=== PATIENT | female | born 1945 | race African-American/Black ===

== ENCOUNTER 2018-03-08 23:55 | Inpatient (IN) | payer OTHER ==
[~2018-03-08] VITALS: Ht 162.6 cm; Wt 176.4 kg
--- NOTE | ~2018-03-08 | EKG ---
[address] [address] ELECTROCARDIOGRAM REPORT Name: ARIELA MIX Room #: 207-P ADM IN M.R.#: [id number] Admission: 03/09/18 Attend Phys: Power Shafer MD Discharge: Date of : 49 Report #: [id number] THIS REPORT FOR: //name// [facility] ED Test Date: 2018-03-09 Test Time: 01:32:07 Pat Name: ARIELA MIX Department: Room: 207 Gender: F Blow Up Operator: DARRYL : 1945 Requested By: Damián Zavala Order Number: [id number] MD: Rmaez Mobley Measurements Intervals [place] Rate: 61 P: IA: QRS: 69 QRSD: 122 T: 17 QT: 435 QTc: 439 Interpretive Statements Sinus rhythm. Nonspecific intraventricular conduction delay Probable anteroseptal infarct, old No previous ECG available for comparison Electronically Signed On 03-13-2018 14:34:12 CDT by Ramez Mobley [email or web address] <ELECTRONICALLY SIGNED> By: Ramez Mobley MD 03/13/18 1434 0132 013 Ramez Mobley MD /ANKIT
--- NOTE | ~2018-03-08 | 2DMMODE ---
[facility] [place] [address] 2 D/M-MODE ECHOCARDIOGRAM Name: SEBLE MIXTE Room #: 421-P [facility] IN ..#: [id number] Admission: 03/09/18 Attend Phys: Power Shafer MD Discharge: Date of : 49 Date of Service: 03/11/18 1313 Report #: [id number] THIS REPORT FOR: //name// APPROVED REPORT Study performed: 03/11/2018 12:00:22 EXAM: Comprehensive 2D, Doppler, and color-flow Echocardiogram Patient Location: Bedside Room #: 421 Status: routine BSA: 2.76 HR: 77 bpm BP: 154/69 mmHg Rhythm: NSR Other Information Study Quality: Technically DifficultTechnically Limited Indications Congestive Heart Failure COPD Diabetes Dyspnea Hypertension/HDD Echo Enhancing Agent Indication: Endocardial border delineation Agent(s) / Amount(s) Used: Optison 4 cc 2D Dimensions IVSd: 14.55 (7-11mm) LVOT Diam: 20.90 (18-24mm) LVDd: 52.81 mm PWd: 14.99 (7-11mm) Ascending Ao: 34.86 (22-36mm) LVDs: 36.63 (25-40mm) Aortic Root: 27.78 mm Aortic Valve AoV Peak Brandon.: 1.33 m/s AO Peak Gr.: 7.04 mmHg Pulmonary Valve PV Peak Brandon.: 1.00 m/s PV Peak Gr.: 4.05 mmHg [facility] [address] [place] [address] 2 D/M-MODE ECHOCARDIOGRAM Name: ARIELA MIX Room #: 421-P ADM IN M.R.#: [id number] Admission: 03/09/18 Attend Phys: Power Shafer MD Discharge: Date of : 49 Date of Service: 03/11/18 1313 Report #: [id number] Left Ventricle The left ventricle is normal size. Mild concentric left ventricular hypertrophy. The overall left ventricular systolic function appears grossly normal. LVEF is 55-60%. This study is not technically sufficient to allow evaluation of the LV diastolic function. Right Ventricle Right ventricle is not well visualized. Atria The left atrium size is normal. Right atrium is not well visualized. Aortic Valve The aortic valve is not well visualized. No aortic regurgitation is present. There is no aortic valvular stenosis. Mitral Valve The mitral valve is normal in structure. There is no mitral valve regurgitation noted. No evidence of mitral valve stenosis. Tricuspid Valve Tricuspid valve is not well visualized. Pulmonic Valve Pulmonic valve is not well visualized. Great Vessels IVC is not visualized. Pericardium There is no pericardial effusion. <Conclusion> Technically difficult study. The left ventricle is normal size. Mild concentric left ventricular hypertrophy. The overall left ventricular systolic function appears grossly normal. Right ventricle is not well visualized. The left atrium size is normal. Right atrium is not well visualized. [facility] [address] [place] [address] 2 D/M-MODE ECHOCARDIOGRAM Name: ARIELA MIX Room #: 421-P [facility] IN .R.#: [id number] Admission: 03/09/18 Attend Phys: Power Shafer MD Discharge: Date of : 49 Date of Service: 03/11/181312 Report #: [id number] The aortic valve is not well visualized. There is no mitral valve regurgitation noted. <ELECTRONICALLY SIGNED> By: Alan Garcia MD 03/11/183 12 12 Alan Garcia MD /INF
--- NOTE | ~2018-03-08 | HC ---
[facility] [place] [address] CONSULTATION Name: ARIELA MIX Room #: 421-P ADM IN M.R.#: [id number] Admission: 03/09/18 Attend Phys: Power Shafer MD Discharge: Date of : 49 Report #: [id number] THIS REPORT FOR: //name// CC: FAM unknown Power Shafer REFERRAL PHYSICIAN: Dr. Shafer. REASON FOR REFERRAL: Acute respiratory failure. HISTORY OF PRESENT ILLNESS: The patient is a 72-year-old white female who was brought to Emergency Room with progressive dyspnea. A pulmonary consultation was requested. The patient is morbidly obese. She has not walked since 2013. She weighs over 204 kg, BMI not sure if that is accurate. She has multiple medical problems including asthma, COPD, sleep apnea, pulmonary hypertension. She states that she was at about 2 weeks ago. She was treated for pneumonia and was discharged home. She lives at home with her daughter and granddaughter. They have been primary caregiver. Otherwise, aside from the dyspnea, she denies any recent febrile illness, chest pain, productive cough, nausea, vomiting, diarrhea. PAST MEDICAL HISTORY: As mentioned above including morbid obesity, asthma/COPD, MICHELLE, pulmonary hypertension, history of heart failure, atrial fibrillation. PAST SURGICAL HISTORY: Partial hysterectomy, tonsillectomy, cholecystectomy. ALLERGIES: MORPHINE, SULFA, reactions not specified. HOME MEDICATIONS: List reviewed as in AUG. FAMILY HISTORY: Noncontributory. SOCIAL HISTORY: She has smoked for about 25 years, quit few years ago. She denies any alcohol use. She lives at home with daughters. REVIEW OF SYSTEMS: As mentioned above, otherwise notable for weakness, has not walked since 2013. Otherwise, 10-point system review negative. PHYSICAL EXAMINATION: GENERAL: She is awake, alert, and appears moderately dyspneic. VITAL SIGNS: Temperature is 98 degrees Fahrenheit, pulse is 60, respiratory rate is 18, blood pressure 120/40 mmHg and saturation 96%. HEENT: Unremarkable. [facility] [address] [place] [address] CONSULTATION Name: ARIELA MIX Room #: [address] [place] [address] [place] ..#: [id number] Admission: 03/09/18 Attend Phys: Power Shafer MD Discharge: Date of : 49 Report #: [id number] NECK: Supple. CHEST: Vesicular breath sounds are distant. Few expiratory wheezes. CARDIOVASCULAR: Heart sounds are distant. No obvious murmurs or gallop. BREASTS: Deferred. ABDOMEN: Large pannus, nontender. GENITOURINARY: Deferred. RECTAL: Deferred. EXTREMITIES: 1 to 2+ bilateral edema. No cyanosis or clubbing. LABORATORY DATA: Portable chest x-ray is of poor quality, appears to have left-sided pleural effusion with cardiomegaly. Electrolytes are normal. Creatinine 0.8. Liver enzymes are grossly unremarkable. WBC 9000, hemoglobin 11.3, platelets normal. INR is 1.9. Arterial blood gas is incomplete. IMPRESSION: 1. Acute hypoxic respiratory failure, probably secondary to heart failure, possible pneumonia, underlying chronic obstructive pulmonary disease/asthma. 2. Chronic obstructive pulmonary disease/asthma exacerbation. Asthma may be related to morbid obesity. 3. Ighcx-jk-wrfkohn systolic heart failure, pleural effusion is noted, though is difficult to discern given poor technique. 4. Abdominal pain. 5. Chronic hypoxic respiratory failure. She is on home O2. 6. Atrial fibrillation, on chronic anticoagulation. 7. Past history of deep venous thrombosis. 8. Obstructive sleep apnea, on home CPAP. 9. Morbid obesity, difficult problem, contributing to most of the problems. 10. Progressive debility and weakness, the patient has not walked since 2014. RECOMMENDATIONS: Agree with current medical treatment plans including bronchodilators, corticosteroids, broad spectrum antibiotics, diuresis. We will followup chest x-ray if possible, consider thoracentesis if needed. <ELECTRONICALLY SIGNED> By: Kelvin Ponce MD 03/10/18 1751 1637 2127 Kelvin Ponce MD /nt
--- NOTE | ~2018-03-08 | HC ---
[facility] [place] [address] CONSULTATION Name: ARIELA MIX Room #: 207-P ADM IN M.R.#: [id number] Admission: 03/09/18 Attend Phys: Power Shafer MD Discharge: Date of : 49 Report #: [id number] THIS REPORT FOR: //name// CC: FAM unknown Power Shafer DATE OF SERVICE: 03/12/2018 ENDOCRINE CONSULTATION Patient of Dr. Shafer's. LOCATION: [facility], room 207. SUBJECTIVE: Morbidly obese 72-year-old white female with exacerbation of COPD and pneumonia, now on high dose corticosteroids. The patient is a very poor historian, but states that she was diagnosed with diabetes in approximately 1992. She was begun on oral therapy and quickly converted to insulin. She has been on a variety of high dose insulin regimens, most recently t.i.d. high dose lispro 50 or so units per day plus either NPH detemir or glargine insulin 50-60 units b.i.d. On this regimen without any specific diet and with almost no physical activity, the patient's blood sugars have ranged from 50-500 when tested. The patient has strong family history of diabetes occurring in both father and mother and possibly other relatives. She has a long history of chronic obesity as well as COPD. She eats 3 meals per day, but snacks continuously. As mentioned, she has no physical activity and has to be assisted with all forms of daily activity. She monitors her sugar on occasion with both hyperglycemic and hypoglycemic episodes. She states that her hemoglobin A1c was 14%. Admission hemoglobin A1c is apparently 8.6%. Otherwise, there is no prior past or family history that is pertinent to report at this time except that corticosteroids were recently decreased to Solu-Medrol b.i.d. rather than q.i.d. The patient apparently has a history of hypothyroidism. States that she had been taking 100 mcg of generic L-thyroxine per day. Her degree of control is unknown at this time. OBJECTIVE: LABORATORY DATA: Hemoglobin A1c 8.6 as mentioned. Fingerstick glucoses have been as high as the high 400s-500 range prior to institution of an insulin drip plus high dose q.i.d., insulin with t.i.d. lispro and b.i.d. glargine at very high doses. Thyroid function has not been evaluated. PHYSICAL EXAMINATION: GENERAL: Morbidly obese 72-year-old white female, in no acute distress. Height 5 feet 4 inches, weight 375-400 pounds. The obesity is distributed both centrally and peripherally. The remainder [place] [address] CONSULTATION Name: ARIELA MIX Room #: 207-P [facility] IN M.R.#: [id number] Admission: 03/09/18 Attend Phys: Power Shaefr MD Discharge: Date of : 49 Report #: [id number] prior notes. There is some pitting pedal edema bilaterally. Thyroid is minimally palpable without nodularity or adenopathy and the gland moves well with deglutition. IMPRESSION: 1. Diabetes mellitus, out of control. The patient has morbid obesity, now complicated and aggravated by infection, chronic obstructive pulmonary disease, stress and high dose corticosteroids as well as probable intravascular dehydration. 2. Morbid obesity with severe insulin resistance and hyperinsulinemia. 3. Hypothyroidism, status unknown. PLAN: I have discussed all of the above with the patient and will take over dietary restriction as well as oral therapy if indicated. We will also utilize subcutaneous and possibly IV insulin as needed in an effort to stabilize glucose control while being cautious to avoid hypoglycemia, particularly as corticosteroid dosage is decreased. It is not clear whether the patient will be able to continue this sort of management regimen after hospital dismissal. Thank you very much for this consultation. I will continue to follow the patient with you for management of diabetes mellitus. <ELECTRONICALLY SIGNED> By: Benjy Galvan MD 03/13/18 1701 1713 Benjy Galvan MD /nt
[2018-03-08 23:57] VITALS: BP 156/56
[2018-03-09 01:33] LABS: URINE BILIRUBIN NEGATIVE (Negative); URINE BLOOD 1+ (Negative); URINE CLARITY CLEAR; URINE COLOR YELLOW; URINE GLUCOSE-RANDOM* NEGATIVE (Negative); URINE KETONES NEGATIVE (Negative); URINE LEUKOCYTES-REFLEX NEGATIVE (Negative); URINE NITRITE-REFLEX NEGATIVE (Negative); URINE PROTEIN (DIPSTICK) NEGATIVE (Negative); URINE UROBILINOGEN 0.2 E.U./dl (0.2-1.0)
[2018-03-09 01:49] LABS: BACTERIA-REFLEX None Seen /HPF (None Seen); CASTS None Seen /LPF (None Seen); MUCUS None Seen strn/LPF (None Seen); SQUAMOUS 0-3 Few /LPF (0-3); URINE RBC 0-2 Rare /HPF (0-2); URINE WBC-REFLEX None Seen /HPF (0-5)
[2018-03-09 01:50] LABS: CRYSTALS None Seen /LPF (None Seen)
[2018-03-09 02:17] LABS: ANION GAP 4 mmol/L (7-16); BUN 15 mg/dL (7-18); CALCIUM 9.2 mg/dL (8.5-10.1); CHLORIDE 105 mmol/L (98-107); CO2 33 mmol/L (21-32); CREATININE 0.8 mg/dL (0.6-1.0); GLUCOSE 139 mg/dL (74-106); POTASSIUM 4.8 mmol/L (3.5-5.1); SODIUM 142 mmol/L (136-145)
[2018-03-09 02:25] LABS: ABSOLUTE NEUTROPHILS 5.3 thou/uL (1.4-8.2); ALBUMIN 3.1 g/dL (3.4-5.0); BASOPHILS 1.1 % (0.0-2.0); EOSINOPHILS 2.9 % (0.0-3.0); HEMATOCRIT 34.4 % (37.0-47.0); HEMOGLOBIN 11.3 gm/dL (12.0-15.0); MAGNESIUM 1.4 mg/dL (1.8-2.4); MCH 28.5 pg (26.0-34.0); MCHC 32.8 g/dL (28.0-37.0); MCV 86.9 fL (80.0-100.0); MONOCYTES 9.3 % (1.0-8.0); PLATELET COUNT 225 thou/uL (150-400); POLYS 58.7 % (36.0-66.0); RBC 3.96 mil/uL (4.20-5.00); RDW 15.1 % (10.5-14.5); SGOT 15 U/L (15-37); SGPT 18 U/L (30-65); TOTAL BILIRUBIN 0.3 mg/dL (<0.1-1.0); TOTAL PROTEIN 7.7 g/dL (6.4-8.2); TROPONIN-I <0.06 ng/mL (<0.06)
[2018-03-09 03:17] LABS: BE(vivo) 5.5 mmol/L (-2 to +3); HCO3 31.5 mmol/L (22.0-26.0); PCO2 52.8 mmHg (35.0-45.0); pH 7.393 (7.360-7.450)
[2018-03-09 03:52] LABS: APTT 36.3 Seconds (24.5-32.8); INR 1.9; PROTIME 19.6 Seconds (9.3-11.4)
[2018-03-09 05:07] VITALS: BP 128/39
[2018-03-09 05:46] VITALS: BP 120/37
[2018-03-09 06:16] VITALS: BP 122/38
[2018-03-09 19:45] VITALS: BP 153/48
[2018-03-10 03:52] VITALS: BP 145/63
[2018-03-10 06:38] LABS: INR 1.6; PROTIME 16.2 Seconds (9.3-11.4)
[2018-03-10 06:59] LABS: ALBUMIN 3.4 g/dL (3.4-5.0); CALCIUM 9.2 mg/dL (8.5-10.1); MAGNESIUM 1.4 mg/dL (1.8-2.4); POTASSIUM 5.6 mmol/L (3.5-5.1); TOTAL BILIRUBIN 0.3 mg/dL (<0.1-1.0)
[2018-03-10 07:30] VITALS: BP 152/74
[2018-03-10] MEDS ORDERED: NYAMYC15 GM TOP (14:41)
[2018-03-10] MEDS ORDERED: PROTONIX40 M4 PO (14:42)
[2018-03-10] MEDS ORDERED: SINGULAIR 10 MG10 M1 PO (14:43)
[2018-03-10] MEDS ORDERED: GLUCOPHAGE XR500 MG PO (14:44)
[2018-03-10] MEDS ORDERED: DIFLUCAN200 MG PO (14:46)
[2018-03-10] MEDS ORDERED: LEVOTHYROXINE100 MC1 PO (14:47)
[2018-03-10] MEDS ORDERED: CARVEDILOL12.5 MG PO (14:47)
[2018-03-10 16:00] VITALS: BP 160/80
[2018-03-10 19:35] VITALS: BP 187/69
[2018-03-10 23:30] VITALS: BP 156/78
[2018-03-11 03:40] VITALS: BP 150/47
[2018-03-11 06:22] LABS: HEMOGLOBIN 11.3 gm/dL (12.0-15.0); MCH 28.4 pg (26.0-34.0); MCHC 32.3 g/dL (28.0-37.0); MCV 87.8 fL (80.0-100.0); RBC 3.99 mil/uL (4.20-5.00); RDW 15.3 % (10.5-14.5); WBC 11.5 thou/uL (4.0-11.0)
[2018-03-11 06:46] LABS: CALCIUM 9.1 mg/dL (8.5-10.1); CREATININE 1.3 mg/dL (0.6-1.0)
[2018-03-11 06:48] LABS: POTASSIUM 4.6 mmol/L (3.5-5.1)
[2018-03-11 07:30] VITALS: BP 154/69
[2018-03-11 09:10] LABS: GLYCOHEMOGLOBIN (HGB A1C) 8.6 % (4.8-5.6)
[2018-03-11] MEDS ORDERED: ATORVASTATIN CA40 MG PO (09:44)
[2018-03-11] MEDS ORDERED: TRAMADOL 50 MG50 MG PO (09:46)
[2018-03-11] MEDS ORDERED: NORVASC5 MG PO (09:47)
[2018-03-11] MEDS ORDERED: LISINOPRIL2.5 MG PO (09:48)
[2018-03-11] MEDS ORDERED: COUMADIN 5 MG TA5 M1 PO (09:50)
[2018-03-11] MEDS ORDERED: COUMADIN 1MG TAB1 M1 PO (09:51)
[2018-03-11] MEDS ORDERED: IRON325 PO (09:54)
[2018-03-11 15:40] VITALS: BP 170/47
[2018-03-11 19:26] VITALS: BP 176/78
[2018-03-11 23:30] VITALS: BP 130/79
[2018-03-12 02:56] LABS: INR 1.8; PROTIME 18.3 Seconds (9.3-11.4)
[2018-03-12 04:00] VITALS: BP 133/67
[2018-03-12 08:29] VITALS: BP 159/90
[2018-03-12 12:00] VITALS: BP 100/68
[2018-03-12 19:28] VITALS: BP 181/72
[2018-03-13 00:27] VITALS: BP 170/64
[2018-03-13 04:56] VITALS: BP 179/73
[2018-03-13 07:46] LABS: HEMATOCRIT 35.6 % (37.0-47.0); HEMOGLOBIN 11.2 gm/dL (12.0-15.0); MCH 27.6 pg (26.0-34.0); MCHC 31.5 g/dL (28.0-37.0); MCV 87.8 fL (80.0-100.0); RBC 4.06 mil/uL (4.20-5.00); RDW 15.3 % (10.5-14.5); WBC 14.8 thou/uL (4.0-11.0)
[2018-03-13 07:53] LABS: CALCIUM 8.2 mg/dL (8.5-10.1); CREATININE 1.3 mg/dL (0.6-1.0); MAGNESIUM 1.9 mg/dL (1.8-2.4); POTASSIUM 4.3 mmol/L (3.5-5.1)
[2018-03-13 08:03] VITALS: BP 169/70
[2018-03-13 10:38] LABS: INR 1.9; PROTIME 19.4 Seconds (9.3-11.4)
[2018-03-13 12:26] VITALS: BP 151/59
[2018-03-13 16:12] VITALS: BP 183/80
[2018-03-13 20:08] VITALS: BP 177/58
[2018-03-14 04:17] VITALS: BP 159/61
[2018-03-14 07:38] VITALS: BP 152/73
[2018-03-14 11:06] VITALS: BP 123/53
[2018-03-14 11:41] LABS: HEMATOCRIT 34.9 % (37.0-47.0); HEMOGLOBIN 11.2 gm/dL (12.0-15.0); MCH 28.1 pg (26.0-34.0); MCHC 32.1 g/dL (28.0-37.0); MCV 87.5 fL (80.0-100.0); RBC 3.99 mil/uL (4.20-5.00); RDW 15.1 % (10.5-14.5); WBC 17.2 thou/uL (4.0-11.0)
[2018-03-14 11:50] LABS: CALCIUM 7.7 mg/dL (8.5-10.1); CREATININE 1.2 mg/dL (0.6-1.0); INR 1.9; MAGNESIUM 1.8 mg/dL (1.8-2.4); POTASSIUM 3.4 mmol/L (3.5-5.1); PROTIME 19.4 Seconds (9.3-11.4)
[2018-03-14 16:35] VITALS: BP 159/61
[2018-03-14 19:28] VITALS: BP 158/69
[2018-03-15 03:55] VITALS: BP 145/57
[2018-03-15 07:54] VITALS: BP 147/57
[2018-03-15 08:25] LABS: HEMATOCRIT 35.6 % (37.0-47.0); HEMOGLOBIN 11.6 gm/dL (12.0-15.0); MCH 28.2 pg (26.0-34.0); MCHC 32.4 g/dL (28.0-37.0); RBC 4.09 mil/uL (4.20-5.00); RDW 15.2 % (10.5-14.5); WBC 18.9 thou/uL (4.0-11.0)
[2018-03-15 08:32] LABS: CALCIUM 7.9 mg/dL (8.5-10.1); POTASSIUM 3.3 mmol/L (3.5-5.1)
[2018-03-15 08:35] LABS: INR 1.7; PROTIME 17.4 Seconds (9.3-11.4)
[2018-03-15 11:35] VITALS: BP 152/58
[2018-03-15 11:36] LABS: URINE BILIRUBIN NEGATIVE (Negative); URINE BLOOD 2+ (Negative); URINE CLARITY CLEAR; URINE COLOR YELLOW; URINE GLUCOSE-RANDOM* NEGATIVE (Negative); URINE KETONES NEGATIVE (Negative); URINE LEUKOCYTES 1+ (Negative); URINE NITRITE NEGATIVE (Negative); URINE PROTEIN (DIPSTICK) NEGATIVE (Negative); URINE UROBILINOGEN 0.2 E.U./dl (0.2-1.0)
[2018-03-15 12:01] LABS: BACTERIA None Seen /HPF (None Seen); CASTS None Seen /LPF (None Seen); CRYSTALS None Seen /LPF (None Seen); MUCUS 4-6 Moderate strn/LPF (None Seen); SQUAMOUS 4-10 Moderate /LPF (0-3); URINE RBC 3-10 Few /HPF (0-2); URINE WBC 6-15 Few /HPF (0-5); YEAST Present (None Seen)
[2018-03-15 19:53] VITALS: BP 154/81
[2018-03-16 05:05] VITALS: BP 150/66
[2018-03-16 07:34] LABS: HEMATOCRIT 35.4 % (37.0-47.0); HEMOGLOBIN 11.2 gm/dL (12.0-15.0); MCHC 31.6 g/dL (28.0-37.0); MCV 88.6 fL (80.0-100.0); RBC 3.99 mil/uL (4.20-5.00); RDW 15.4 % (10.5-14.5); WBC 22.5 thou/uL (4.0-11.0)
[2018-03-16 07:45] LABS: INR 1.7; PROTIME 17.4 Seconds (9.3-11.4)
[2018-03-16 07:48] VITALS: BP 165/56
[2018-03-16 07:49] LABS: CALCIUM 7.4 mg/dL (8.5-10.1); MAGNESIUM 1.9 mg/dL (1.8-2.4); POTASSIUM 3.5 mmol/L (3.5-5.1)
[2018-03-16 10:59] LABS: ALBUMIN 2.8 g/dL (3.4-5.0); DIRECT BILIRUBIN < 0.1 mg/dL (<0.1-0.3); SGOT 18 U/L (15-37); SGPT 29 U/L (30-65); TOTAL BILIRUBIN 0.3 mg/dL (<0.1-1.0)
[2018-03-16 15:40] VITALS: BP 161/65
[2018-03-16 19:55] VITALS: BP 145/52
[2018-03-17 04:20] LABS: CREATININE 0.8 mg/dL (0.6-1.0); MAGNESIUM 1.9 mg/dL (1.8-2.4); POTASSIUM 3.7 mmol/L (3.5-5.1)
[2018-03-17 04:50] VITALS: BP 158/60
[2018-03-17 08:16] VITALS: BP 152/51
[2018-03-17 10:20] LABS: HEMATOCRIT 35.6 % (37.0-47.0); HEMOGLOBIN 11.4 gm/dL (12.0-15.0); MCHC 31.9 g/dL (28.0-37.0); MCV 87.9 fL (80.0-100.0); RBC 4.06 mil/uL (4.20-5.00); RDW 15.4 % (10.5-14.5); WBC 19.4 thou/uL (4.0-11.0)
[2018-03-17 10:29] LABS: INR 1.5; PROTIME 15.5 Seconds (9.3-11.4)
[2018-03-17 11:30] LABS: URINE BILIRUBIN NEGATIVE (Negative); URINE BLOOD 2+ (Negative); URINE CLARITY CLEAR; URINE COLOR YELLOW; URINE GLUCOSE-RANDOM* NEGATIVE (Negative); URINE KETONES NEGATIVE (Negative); URINE NITRITE-REFLEX NEGATIVE (Negative); URINE PROTEIN (DIPSTICK) NEGATIVE (Negative); URINE SPECIFIC GRAVITY 1.015 (1.005-1.035); URINE UROBILINOGEN 0.2 E.U./dl (0.2-1.0)
[2018-03-17 11:32] LABS: URINE LEUKOCYTES-REFLEX 2+ (Negative)
[2018-03-17 11:36] LABS: SQUAMOUS 4-10 Moderate /LPF (0-3)
[2018-03-17 11:37] LABS: YEAST-REFLEX Present (None Seen)
[2018-03-17 11:38] LABS: URINE WBC-REFLEX 6-15 Few /HPF (0-5)
[2018-03-17 11:39] LABS: BACTERIA-REFLEX 1-9 Few /HPF (None Seen); CASTS None Seen /LPF (None Seen); CRYSTALS None Seen /LPF (None Seen); RENAL EPITHELIAL CELLS 0-3 Few /LPF (None Seen); TRANSITIONAL EPITHEL CELL 0-3 Few /LPF (None Seen); URINE RBC 3-10 Few /HPF (0-2)
[2018-03-17 12:13] VITALS: BP 122/85
[2018-03-17 17:01] VITALS: BP 150/61
[2018-03-17 19:59] VITALS: BP 168/45
[2018-03-18 04:59] VITALS: BP 134/77; BP 140/59
[2018-03-18 06:39] LABS: HEMATOCRIT 33.2 % (37.0-47.0); HEMOGLOBIN 10.9 gm/dL (12.0-15.0); MCH 28.7 pg (26.0-34.0); MCHC 32.8 g/dL (28.0-37.0); MCV 87.6 fL (80.0-100.0); RBC 3.79 mil/uL (4.20-5.00); WBC 19.7 thou/uL (4.0-11.0)
[2018-03-18 06:48] LABS: INR 1.5; PROTIME 14.9 Seconds (9.3-11.4)
[2018-03-18 06:49] LABS: CALCIUM 7.4 mg/dL (8.5-10.1); MAGNESIUM 1.9 mg/dL (1.8-2.4); POTASSIUM 3.5 mmol/L (3.5-5.1)
[2018-03-18 07:38] VITALS: BP 121/92
[2018-03-18 11:04] VITALS: BP 128/48
[2018-03-18 15:42] VITALS: BP 141/58
[2018-03-18 20:40] VITALS: BP 160/64
[2018-03-19 03:56] VITALS: BP 158/52
[2018-03-19 07:10] LABS: HEMATOCRIT 32.5 % (37.0-47.0); HEMOGLOBIN 10.3 gm/dL (12.0-15.0); MCH 27.6 pg (26.0-34.0); MCHC 31.6 g/dL (28.0-37.0); MCV 87.4 fL (80.0-100.0); RBC 3.72 mil/uL (4.20-5.00); WBC 15.7 thou/uL (4.0-11.0)
[2018-03-19 07:22] LABS: CALCIUM 7.8 mg/dL (8.5-10.1); CREATININE 0.8 mg/dL (0.6-1.0); POTASSIUM 3.7 mmol/L (3.5-5.1)
[2018-03-19 07:23] LABS: INR 1.5; PROTIME 15.4 Seconds (9.3-11.4)
[2018-03-19 08:10] VITALS: BP 193/92
[2018-03-19 11:50] VITALS: BP 150/81
[2018-03-19] MEDS ORDERED: MIRALAX17 GM PO (12:06)
[2018-03-19] MEDS ORDERED: PROBIOTIC1 EAC1 PO (12:06)
[2018-03-19] MEDS ORDERED: COUMADIN 5 MG TA5 M1 PO (12:06)
[2018-03-19] MEDS ORDERED: MUCINEX600 MG PO (12:06)
[2018-03-19] MEDS ORDERED: SENNA PLUS TAB1 EACH PO (12:06)
[2018-03-19] MEDS ORDERED: FLONASE 0.05%50 MCG NASAL (12:06)
[2018-03-19] MEDS ORDERED: PREDNISONE 20 M20 MG PO (12:06)
[2018-03-19] MEDS ORDERED: LEVAQUIN 750 M750 MG PO (12:06)
[2018-03-19] MEDS ORDERED: AZITHROMYCIN 2250 MG PO (12:06)
[2018-03-19] MEDS ORDERED: NEBULIZER MISCELL (12:06)
[2018-03-19] MEDS ORDERED: PULMICORT0.5 MG/21 INH (12:06)
[2018-03-19] MEDS ORDERED: LASIX 40 MG TAB40 M2 PO (12:06)
[2018-03-19] MEDS ORDERED: VITAMIN B-12500 MCG PO (12:06)
[2018-03-19] MEDS ORDERED: CLARITIN10 MG PO (12:06)
[2018-03-19] MEDS ORDERED: IPRATROPIU0.2 MG/1 M INH (12:06)
[2018-03-19] MEDS ORDERED: LEVEMIR SUBQ ×2 (12:53→17:56)
[2018-03-19] MEDS ORDERED: NOVOLOG100 UNIT/1 SUBQ ×2 (12:53→17:56)
[2018-03-19 13:42] VITALS: BP 150/81
[2018-03-19 14:24] VITALS: BP 150/81
[2018-03-19 16:10] VITALS: BP 171/70
== END 2018-03-19 20:00 | disposition home health service (06) | DRG 871 ==
LOC: ER 23:55 → 4E 03-09 04:24 → EROBS 03-09 04:24 → 4E 03-09 05:47 → ICU 03-11 23:10 → 2N 03-12 15:14
PROVIDERS: Emergency Medicine; Hospitalist; Internal Medicine; Nurse Practitioner
PROC: 5A09357 Assistance with Respiratory Ventilation, Less than 24 Consecutive Hours, Continuous Positive Airway Pressure (ICD-10-PCS; principal; 2018-03-11)
PROC: 5A09357 Assistance with Respiratory Ventilation, Less than 24 Consecutive Hours, Continuous Positive Airway Pressure (ICD-10-PCS; 2018-03-14)
PROC: 5A09357 Assistance with Respiratory Ventilation, Less than 24 Consecutive Hours, Continuous Positive Airway Pressure (ICD-10-PCS; 2018-03-15)
DX: A41.9 Sepsis, unspecified organism (principal); I50.23 Acute on chronic systolic (congestive) heart failure; J96.21 Acute and chronic respiratory failure with hypoxia; J18.9 Pneumonia, unspecified organism; Z68.44 Body mass index [BMI] 60.0-69.9, adult; J45.901 Unspecified asthma with (acute) exacerbation; J44.0 Chronic obstructive pulmonary disease with (acute) lower respiratory infection; N39.0 Urinary tract infection, site not specified; I11.0 Hypertensive heart disease with heart failure; J45.909 Unspecified asthma, uncomplicated; I27.20 Pulmonary hypertension, unspecified; I48.91 Unspecified atrial fibrillation; E83.42 Hypomagnesemia; E66.01 Morbid (severe) obesity due to excess calories; G47.33 Obstructive sleep apnea (adult) (pediatric); E03.9 Hypothyroidism, unspecified; K59.09 Other constipation; M62.84 Sarcopenia; E87.5 Hyperkalemia; T38.0X5A Adverse effect of glucocorticoids and synthetic analogues, initial encounter; E11.65 Type 2 diabetes mellitus with hyperglycemia; D72.829 Elevated white blood cell count, unspecified; Z88.6 Allergy status to analgesic agent; Z88.2 Allergy status to sulfonamides; Z90.711 Acquired absence of uterus with remaining cervical stump; Z90.49 Acquired absence of other specified parts of digestive tract; Z79.01 Long term (current) use of anticoagulants; Z87.891 Personal history of nicotine dependence; Z99.81 Dependence on supplemental oxygen; Z86.718 Personal history of other venous thrombosis and embolism
CPT/HCPCS: 10081; 10183; 10203

== ENCOUNTER 2019-04-13 17:11 | Inpatient (IN) | payer OTHER ==
[~2019-04-13] VITALS: Ht 162.6 cm; Wt 184.2 kg
[~2019-04-13 17:11] MED LIST: ATORVASTATIN CA40 MG PO; AZITHROMYCIN 2250 MG PO; CARVEDILOL12.5 MG PO; CLARITIN10 MG PO; COUMADIN 1MG TAB1 M1 PO; COUMADIN 5 MG TA5 M1 PO; DIFLUCAN200 MG PO; FLONASE 0.05%50 MCG NASAL; GLUCOPHAGE XR500 MG PO; IPRATROPIU0.2 MG/1 M INH; IRON325 PO; LASIX 40 MG TAB40 M2 PO; LEVAQUIN 750 M750 MG PO; LEVEMIR SUBQ; LEVOTHYROXINE100 MC1 PO; LISINOPRIL2.5 MG PO; MIRALAX17 GM PO; MUCINEX600 MG PO; NEBULIZER MISCELL; NORVASC5 MG PO; NOVOLOG100 UNIT/1 SUBQ; NYAMYC15 GM TOP; PREDNISONE 20 M20 MG PO; PROBIOTIC1 EAC1 PO; PROTONIX40 M4 PO; PULMICORT0.5 MG/21 INH; SENNA PLUS TAB1 EACH PO; SINGULAIR 10 MG10 M1 PO; TRAMADOL 50 MG50 MG PO; VITAMIN B-12500 MCG PO
[2019-04-13 17:12] VITALS: BP 155/52
[2019-04-13] MEDS ORDERED: COUMADIN 5 MG TA5 M1 PO (17:44)
[2019-04-13 18:02] LABS: HEMATOCRIT 34.7 % (37.0-47.0); HEMOGLOBIN 10.8 gm/dL (12.0-15.0); MCHC 31.2 g/dL (28.0-37.0); MCV 89.5 fL (80.0-100.0); RBC 3.88 mil/uL (4.20-5.00); RDW 14.9 % (10.5-14.5); WBC 10.8 thou/uL (4.0-11.0)
[2019-04-13 18:10] LABS: CALCIUM 8.7 mg/dL (8.5-10.1); CREATININE 1.1 mg/dL (0.6-1.0); POTASSIUM 3.6 mmol/L (3.5-5.1)
[2019-04-13 18:17] LABS: ALBUMIN 2.8 g/dL (3.4-5.0); TOTAL BILIRUBIN 0.2 mg/dL (<0.1-1.0); TOTAL PROTEIN 7.6 g/dL (6.4-8.2)
[2019-04-13 18:41] LABS: INR 1.4
[2019-04-13 20:12] LABS: URINE BILIRUBIN NEGATIVE (Negative); URINE BLOOD 1+ (Negative); URINE CLARITY SL CLOUDY; URINE COLOR YELLOW; URINE GLUCOSE-RANDOM* NEGATIVE (Negative); URINE KETONES NEGATIVE (Negative); URINE LEUKOCYTES-REFLEX 2+ (Negative); URINE NITRITE-REFLEX NEGATIVE (Negative); URINE PROTEIN (DIPSTICK) NEGATIVE (Negative); URINE UROBILINOGEN 0.2 E.U./dl (0.2-1.0)
[2019-04-13 20:27] LABS: BACTERIA-REFLEX >30 Many /HPF (None Seen); URINE RBC 3-10 Few /HPF (0-2); URINE WBC-REFLEX >25 Many /HPF (0-5)
[2019-04-13 20:29] VITALS: BP 149/47
[2019-04-13 20:29] LABS: CASTS None Seen /LPF (None Seen)
[2019-04-13 20:30] LABS: CRYSTALS None Seen /LPF (None Seen); SQUAMOUS 4-10 Moderate /LPF (0-3)
[2019-04-13 21:23] VITALS: BP 142/52
[2019-04-13 23:17] VITALS: BP 134/41
--- NOTE | 2019-04-14 04:11 | NUR ---
PT WAS ADMITTED TO THE UNIT AT 22:45.PT IS A/O X4.PT ADMITTED WITH C/O OF HYPOGLYCEMIA AND SOB.PT IS ON O2/3L/NC AND USES BIPAP AT NIGHT AND AT HOME TOO.PT IS FROM HOME AND LIVES WITH DAUGHTER.PT IS NON-AMBULATORY(BEDBOUND).PT IS 3 TO 4 PERSONS ASSIST.PT HAS OLD BLISTER ON LT BUTTOCKS AND REDNEDD BETWEEN MULTIPLE FOLD WITH ITCHING.PT USES BEDPAN.PT HAS 2 IV ACCESS ON ASHLEY AND LW.PT IS ON A LOW CARB DIET.PT HAS A BM THIS AM .SCDS ON.TO CONTINUE POC
[2019-04-14 06:23] LABS: CALCIUM 8.3 mg/dL (8.5-10.1); INR 1.4; POTASSIUM 3.8 mmol/L (3.5-5.1); PROTIME 15.1 Seconds (9.3-11.4)
[2019-04-14 07:24] VITALS: BP 141/58
[2019-04-14 15:20] VITALS: BP 153/60
--- NOTE | 2019-04-14 15:23 | NUR ---
PT ADMITTED RELATED TO HYPOGLYCEMIA AND SHORTNESS OF BREATH. CM REVIEWED CHART AND SPOKE WITH CARE TEAM. CM MET WITH PT AT BEDSIDE THIS DAY. PT IS A&O X4. CM ROLE INTRODCUED. PT INDICATED SHE LIVES IN A HOUSE WITH HER DTR AND GDTR. PT INDICATED THERE IS A RAMP TO ENTER AND NO STEPS INSIDE. PT INDICATED THAT SHE IS BED BOUND AND NON AMBULATORY. PT INDICATED SHE HAS AN OLD HOSPITAL BED, THERESA LIFT, OXYGEN THROUGH [facility], TRILOGY, AND NEMBULIZER FOR HOME USE. PT INDICATED HE DTR IS HER PRIMARY CAREGIVER AND THAT SHE USES A THERESA LIFT TO REPOSITION PT AND CHANGE BED. PT INDICATED SHE HAD BEEN ON SERVICE WITH [employer] IN THE PAST BUT SHE STATED SHE DOESN'T HOME HEALTH UPON DC. CM TRIED TO CALL PT'S DTR ([facility]) BUT NUMBER LISTED WAS FOR PT. CM TO FOLLOW INDICATED WITH DC PLANNING.
--- NOTE | 2019-04-14 16:43 | NUR ---
Received awake on bed. Due medications given as prescribed, able to swallow meds w/o difficulty. A+Ox4. with O2 at 3lpm via nasal cannula- baseline at home, using bipap at night. On carb controlled, sodium restricted diet- tolerating well; no nausea, no vomiting, no abdominal pain noted. Vital signs stable. With blood sugar monitoring- taken and recorded accordingly; with sliding scale insulin prescribed. Able to use bedpan, with external female catheter in place- output measured and recorded accordingly. Pt tried to be turned in bed but there is no space for her to be turned more, bariatric bed ordered by US- a/w delivery as per US. With SL at L upper arm, NS at 75cc/hr infusing well at R hand. Nystatin powder applied to skin folds, pt complained of itchiness Dr Moreno informed and changed Nystatin powder to ointment- applied as prescribed, bed bath given to patient. Pad checked and changed as needed, assisted in ADLs. Pt AOx3-4, max assist. To continue monitoring pt.
--- NOTE | 2019-04-14 17:31 | EKG ---
[address] [place] [address] ELECTROCARDIOGRAM REPORT Name: MIXARIELA CISNEROS Room #: 455-P ADM IN M.R.#: [id number] Admission: 04/13/19 Attend Phys: Gabriel Moreno MD Discharge: Date of : 49 Report #: [id number] THIS REPORT FOR: //name// [facility] ED Test Date: 2019-04-13 Test Time: 18:36:31 Pat Name: ARIELA MIX Department: Room: [facility] Gender: F Pen And Pencil Repairer: NEIL : 1945 Requested By: Jose Huerta Order Number: [id number] MD: Bong Murry Measurements Intervals [place] Rate: 59 P: 65 MN: 191 QRS: -2 QRSD: 121 T: 19 QT: 450 QTc: 446 Interpretive Statements Sinus bradycardia Anterior myocardial infarction, old Compared to ECG 03/09/2018 01:32:07 No significant change was found Electronically Signed On 04-14-2019 17:30:56 CDT by Bong Murry [email or web address] <ELECTRONICALLY SIGNED> By: Bong Murry MD, [facility] 04/14/19 1010 183 183 Bong Murry MD, [facility] /EPI
[2019-04-14 19:11] VITALS: BP 142/41
[2019-04-14 23:10] LABS: GLYCOHEMOGLOBIN (HGB A1C) 6.8 % (4.8-5.6)
[2019-04-15 02:52] VITALS: BP 171/53
--- NOTE | 2019-04-15 05:45 | NUR ---
assumed care of pt @1900. pt a&ox4. order for melatonin was ordered and given. pt is a max assist with 3 or more persons. pt c/o of generalized itching, and x1 dose benedryl po was ordered. pt could not tolerate hospital cpap, so pt agreed to have home cpap len in. pt is on 3l nc and thats pt baseline. purwick in place but pt has been incont x4 through out the night. hydalazine 1x dose was given for high BP, pt v/s was checked after an hr of admin and hypertension was resolved. no s/s of distress. call finnegan within reach. will cont to monitor
[2019-04-15 07:55] VITALS: BP 139/68
--- NOTE | 2019-04-15 11:30 | HC ---
[facility] [place] [address] CONSULTATION Name: ARIELA MIX Room #: 455-P ADM IN M.R.#: [id number] Admission: 04/13/19 Attend Phys: Gabriel Moreno MD Discharge: Date of : 49 Report #: [id number] THIS REPORT FOR: //name// CC: FAM unknown Gabriel Moreno DATE OF SERVICE: 04/14/2019 ENDOCRINE CONSULTATION CONSULTING PHYSICIAN: Dr. Lisa. REASON FOR CONSULTATION: Uncontrolled type 2 diabetes mellitus. HISTORY OF PRESENT ILLNESS: This is a 73-year-old female patient whose medical background is significant for type 2 diabetes mellitus, COPD, obstructive sleep apnea, hypertension, AFib, and morbid obesity. The patient was admitted yesterday with complaints of severe hypoglycemia and shortness of breath. The patient notes that she has been a diabetic for many years and that she has utilized insulin analog therapy in the past with a fair amount of success. However, due to the rising cost of insulin, the patient switched her therapy over to Humulin insulin and is currently utilizing a combination of Humulin N insulin and Humulin R insulin. When asked about the doses of her insulin regimen, the patient indicated that she variate these doses quite a great deal and she indicated that her N insulin could range from nothing to 30 units once or twice a day. Also, her Humulin R insulin would range from nothing to 20 units 2 or 3 times a day. She notes that her blood glucose values fluctuate widely, but mostly are in the 200-300 mg/dL range. Hypoglycemia has occurred in the past as it did yesterday when she was found to have blood sugar values in the 40s upon the arrival of EMS, The patient is not aware of major issues pertaining to diabetic nephropathy or retinopathy. She does have intermittent issues with diabetic neuropathy. Also, the patient undergoes active therapy for hypertension with amlodipine, lisinopril, as well as for hypothyroidism with levothyroxine 100 mcg daily. REVIEW OF SYSTEMS: CONSTITUTIONAL: Fatigue, tiredness, but no fever or chills. HEENT: Negative for sore throat, sinus pain or ear drainage. PULMONARY: Shortness of breath and cough, but no hemoptysis. CARDIAC: Palpitations, lower extremity edema, lightheadedness, but no chest pain. GASTROINTESTINAL: Occasional issues with nausea, abdominal discomfort, but no vomiting or significant changes in bowel movement frequency. [address] [address] CONSULTATION Name: ARIELA MIX Room #: 455-P [facility] IN M.R.#: [id number] Admission: 04/13/19 Attend Phys: Gabriel Moreno MD Discharge: Date of : 49 Report #: [id number] NEUROLOGY: Lightheadedness, occasional dizziness, but no loss of consciousness or seizure activity. SKIN: No major issues with rash, ulceration or other major abnormality. PSYCHIATRIC: Negative for depression, hallucination or delusion. Otherwise, review of systems is noncontributory other than those mentioned in HPI. PAST MEDICAL HISTORY: 1. Type 2 diabetes mellitus. 2. Hypertension. 3. Morbid obesity. 4. COPD. 5. Obstructive sleep apnea. 6. Atrial fibrillation. 7. CHF. 8. Hypothyroidism. 9. Anemia. 10. Asthma. OUTPATIENT MEDICATIONS: Include Claritin 10 mg daily, Lasix 40 mg daily, Humulin N insulin highly variable dose, but it could be to a maximum of 30 units twice a day, Humulin regular insulin again, this is highly variable, but it could be up to 20 units 3 times a day, lisinopril 2.5 mg daily, ferrous sulfate 325 mg daily, amlodipine 5 mg daily, pantoprazole, Singulair 10 mg daily, metformin XR 500 mg daily, levothyroxine 100 mcg daily, carvedilol 12.5 mg b.i.d., Coumadin 5 mg daily. ALLERGIES: SULFA AND MORPHINE. FAMILY HISTORY: Noncontributory. SOCIAL HISTORY: The patient denies the active use of tobacco, alcohol or illicit drugs. PHYSICAL EXAMINATION: GENERAL: Pleasant -[place] female patient who is not in apparent pain or distress. She is morbidly obese. VITAL SIGNS: Blood pressure is 141/58 mmHg, heart rate is 67 beats per minute, respirations 19 per minute, temperature 36.7 degrees. CONSTITUTIONAL: She appears comfortable, not in apparent distress. HEENT: Anicteric sclerae. Intact extraocular motions. NECK: Supple, without JVD, carotid bruits or lymphadenopathy. I do not appreciate thyromegaly. CHEST: Noted for distant breath sounds bilaterally with scattered rales and rhonchi. HEART: Regular rate and rhythm without murmurs or gallops. ABDOMEN: Soft and lax without tenderness or organomegaly. [address] [address] CONSULTATION Name: ARIELA MIX Room #: 455-P [facility] IN M.R.#: [id number] Admission: 04/13/19 Attend Phys: Gabriel Moreno MD Discharge: Date of : 49 Report #: [id number] EXTREMITIES: Lower extremity exam edema, but no skin breaks, ulcerations or other major deformities. NEUROLOGIC: Awake, alert and oriented to time, place and person. The remainder of her examination is nonfocal. PSYCHIATRIC: Pleasant, interactive, appropriate. Normal mood and affect. LABORATORY RESULTS: During her hospital stay here, the patient has had blood glucose values that ranged from 117-190 mg/dL. Otherwise, sodium 139, potassium 3.8, chloride 103, CO2 of 30, anion gap 6, BUN 24, creatinine 1.0, AST 12, total bilirubin 0.2, direct bilirubin less than 0.1, calcium 8.3, magnesium 1.9, alkaline phosphatase is 76, ALT 9, total protein 7.6, albumin 2.8, GFR 66. White blood count 10.8, hemoglobin 10.8, hematocrit 34.7, platelets 311. ASSESSMENT AND PLAN: 1. Type 2 diabetes mellitus. As noted above, the patient has insulin requiring diabetes mellitus and the hallmark of her treatment regimen has been a huge variability in the intake of insulin, ranging from no intake whatsoever to very large doses. The patient was counseled extensively about the fact that this inconsistent intake of insulin especially long-acting Humulin N certainly would set her up for wide fluctuations including those with hypoglycemia. The same can be said to a large extent about her intake of Humulin regular insulin. When I discussed therapeutic options with the patient, she made a very reasonable point that she could not afford insulin analog therapy, which has been her past experience. I think that is the fair point and has to be considered when trying to put together a successful treatment plan that the patient can actually carry out at home. That said, I prefer to continue treating the patient with Humulin insulin therapy. I will do so in the form of NPH insulin taken as 15 units twice a day with Humulin regular insulin taken as 10 units before meals to start with in addition to resuming her metformin. I will also ask for hemoglobin A1c to update our understanding of her diabetic control. Blood glucose monitoring will commence a.c. and at bedtime and support with Humalog supplemental scale continue. 2. Hypothyroidism. The patient has chronic hypothyroidism and is on treatment with levothyroxine 100 mcg daily. She is clinically euthyroid. I will request a TSH and free T4 levels to further assess the adequacy of this regimen. 3. Hypertension. The patient's level of blood pressure control is adequate on the current regimen, she is to continue the same. I certainly appreciate this consultation by Dr. Lisa. <ELECTRONICALLY SIGNED> By: Carmel Marcum MD 04/15/19 1130 1236 2133 Carmel Marcum MD /nt
[2019-04-15 11:41] LABS: HEMATOCRIT 33.6 % (37.0-47.0); HEMOGLOBIN 10.6 gm/dL (12.0-15.0); MCH 28.4 pg (26.0-34.0); MCHC 31.5 g/dL (28.0-37.0); MCV 90.1 fL (80.0-100.0); RBC 3.73 mil/uL (4.20-5.00); RDW 15.4 % (10.5-14.5); WBC 8.5 thou/uL (4.0-11.0)
[2019-04-15 11:54] LABS: CALCIUM 8.2 mg/dL (8.5-10.1); CREATININE 0.9 mg/dL (0.6-1.0); MAGNESIUM 1.4 mg/dL (1.8-2.4); POTASSIUM 3.8 mmol/L (3.5-5.1)
--- NOTE | 2019-04-15 13:19 | NUR ---
CARE TEAM INDICATED THAT PT WILL LIKELY BE MEDICALLY STABLE TO DC HOME TOMORROW. PT INDICATED SHE DIDN'T WANT HOME HEALTH UPON DC. CM ATTEMPTED PC TO PT'S DTR [facility] AGAIN BUT ALL NUMBERS LISTED AT FOR PT. CM COMPLETED [facility] FORM FOR PT TO DC HOME SHE USES THEM FOR TRANSPORT. IT IS ON THE CHART IN PT'S WALL [employer] PATTERN [employer]KER.
[2019-04-15 13:29] VITALS: BP 133/75
--- NOTE | 2019-04-15 13:32 | NUR ---
Assess due to RD consult received, not specified. Admit with hypoglycemia and SOB. Class III extreme obesity, BMI 71. Hx DM, copd, CHF. Pt bedbound, lives with daughter. A1C 6.8. Eating 100% of meals and voiced no complaints and no questions regarding carb controlled plan. Wt hx shows large fluctuating wts, and pt with hx CHF, so difficult to determine specific changes. On lasix. Endo following for BG management. Low nutrition risk
[2019-04-15 19:20] VITALS: BP 136/62
--- NOTE | 2019-04-16 06:22 | NUR ---
progress pt reports being uncomfortable in bed repositioned frequently with little effect, order for tramadol 50 mg obtained and medication given with some effect. a/o x4, vss, skin c/d/i reports itching lotion applied with some relief. o2 at 3 liters wore cpap for a short time then returned to o2 via nc at 3 liters rt treatments continue lungs coarse throughout coughing up thick yellow sputum. had bm on bedpan, incontinent of urine x1 female external catheter placed working well good return of clear yellow urine.
[2019-04-16 12:56] LABS: CALCIUM 8.4 mg/dL (8.5-10.1); CREATININE 0.9 mg/dL (0.6-1.0); MAGNESIUM 1.9 mg/dL (1.8-2.4); POTASSIUM 4.3 mmol/L (3.5-5.1)
[2019-04-16 15:00] VITALS: BP 150/43
--- NOTE | 2019-04-16 16:37 | NUR ---
Pt not d/c today. If discharged over the weekend, ambulance transfer form is on the chart. It will need to be faxed to [facility] and then call to schedule transprt time. [facility] ambulance transport [phone]; fax [phone]
--- NOTE | 2019-04-16 19:35 | NUR ---
TOOK OVER CARE OF PATIENT AT 1130. RECEIVED REPORT FROM IFEOMA LEROY. PATIENT REQUIRES FREQUENT ASSISTANCE WITH BED WATSON, TURNING, ADJUSTING EXTERNAL CATHETER, PAIN CONTROL, SETTING UP MEALS. ABLE TO TURN TO HER LEFT WITH 2 ASSIST TO GET ON BED WATSON. HAD LARGE BOWELL MOVEMENT. TOLERATING DIET WELL. REFUSED TO DISCHARGE TODAY, STATING I NEED ONE MORE DAY. FALL PRECAUTIONS IN PLACE. NEEDS MUCH EMOTIONAL SUPPORT. HAD GOOD DIURESIS FROM LASIX.
[2019-04-16 21:09] VITALS: BP 138/58
--- NOTE | 2019-04-17 03:12 | NUR ---
patient aox4 makes needs known. patient continent of bowel, incontient of bladder,pericare and barrier cream applied as needed. patient has external catheter. patient has redness on periare nystatin cream applied on the folds per dr orders. patient refused to be turned this shift. patient refused c pap this shift. patient on continous oxygen 3L, o2 sat is 99% at this time. patient in bed asleep at this time breathing regular and unlaboured.
[2019-04-17 08:00] VITALS: BP 164/78
[2019-04-17 15:00] VITALS: BP 150/98
[2019-04-17 19:35] VITALS: BP 146/50
--- NOTE | 2019-04-17 19:36 | NUR ---
Assumed pt care at 7am.Pt in bed sound asleep till 9am.Assessment completed. vss.Rn woke pt up for am care and meds.Pt was upset for overslept and unable to order breakfast.She said that she doesn't like house tray.Breakfast warmed and given to pt with meds.Pt was uncomfortable most of the time and security has to assist several times with turned and repositioned q2h.Family here to visit, updates given.Side rails up at alltimes to prevent fall.Over 1999+ urine noted form pt u/o today.Report off to noc rn.
--- NOTE | 2019-04-18 02:40 | NUR ---
ASSUMED CARE OF PT AT 1900HRS. PT IS AOX4 AND LETS NEEDS BE LNOWN. FALL PRECAUTION IN PLACE. PT IS REFUSING TURNS FOR COMFORT THIS SHIFT. FEMALE EXTERNAL CATH IN PLACE. O2 VIA NC CONTINUED AT 3L. CPAP USED WHILE SLEEPING. VSS AND NO S/S OF ACUTE DISTRESS. WILL CONTINUE TO MONITOR.
[2019-04-18 06:28] VITALS: BP 142/49
[2019-04-18 07:27] VITALS: BP 146/56
[2019-04-18 15:30] VITALS: BP 148/45
--- NOTE | 2019-04-18 18:43 | NUR ---
Assumed pt care this am, fall precautions in place. Pt requires alot of time since she is not able to turn or care for herself. Female ext cat in place draining yellow urine, UA sent down to the lab. Pt has 4 boults of LMB informed Dr. Zambrano , loperamide ordered and given. 3L of O2 via NC. Pt refused to be turned since this required help from security (4 to 5 people assists). POC followed, no signs or verbalizatons of distress have been noted.
[2019-04-18 19:10] VITALS: BP 148/55
[2019-04-18 20:09] LABS: URINE BILIRUBIN NEGATIVE (Negative); URINE BLOOD 1+ (Negative); URINE CLARITY SL CLOUDY; URINE COLOR YELLOW; URINE GLUCOSE-RANDOM* NEGATIVE (Negative); URINE KETONES NEGATIVE (Negative); URINE NITRITE-REFLEX NEGATIVE (Negative); URINE PROTEIN (DIPSTICK) NEGATIVE (Negative); URINE UROBILINOGEN 0.2 E.U./dl (0.2-1.0)
[2019-04-18 20:15] LABS: URINE LEUKOCYTES-REFLEX 3+ (Negative)
[2019-04-18 20:16] LABS: BACTERIA-REFLEX 1-9 Few /HPF (None Seen); CASTS None Seen /LPF (None Seen); CRYSTALS None Seen /LPF (None Seen); SQUAMOUS 4-10 Moderate /LPF (0-3); URINE RBC 0-2 Rare /HPF (0-2); URINE WBC-REFLEX >25 Many /HPF (0-5); YEAST-REFLEX Present (None Seen)
--- NOTE | 2019-04-19 05:16 | NUR ---
Pt. rested quietly at intervals during the night when checked on during frequent rounds. She c/o being itchy all over and po benadryl given with some relief (see emar). She also c/o generalized pain and po tramadol given (see emar) with relief. No loose stools this shift. No c/o shortness of air.
[2019-04-19 08:34] VITALS: BP 139/46
[2019-04-19 09:32] LABS: ABSOLUTE NEUTROPHILS 4.1 thou/uL (1.4-8.2); BASOPHILS 1.1 % (0.0-2.0); EOSINOPHILS 4.2 % (0.0-3.0); HEMATOCRIT 33.4 % (37.0-47.0); HEMOGLOBIN 10.3 gm/dL (12.0-15.0); LYMPHOCYTES 33.6 % (24.0-44.0); MCH 27.9 pg (26.0-34.0); MCHC 30.9 g/dL (28.0-37.0); MCV 90.2 fL (80.0-100.0); MONOCYTES 10.9 % (1.0-8.0); PLATELET COUNT 296 thou/uL (150-400); POLYS 50.2 % (36.0-66.0); RDW 14.7 % (10.5-14.5); WBC 8.2 thou/uL (4.0-11.0)
[2019-04-19 09:49] LABS: ALBUMIN 2.9 g/dL (3.4-5.0); CALCIUM 8.5 mg/dL (8.5-10.1); CREATININE 0.8 mg/dL (0.6-1.0); MAGNESIUM 1.3 mg/dL (1.8-2.4); POTASSIUM 3.8 mmol/L (3.5-5.1); TOTAL BILIRUBIN 0.2 mg/dL (<0.1-1.0)
[2019-04-19] MEDS ORDERED: CEFDINIR300 MG PO (14:02)
[2019-04-19] MEDS ORDERED: NYSTATIN15 G1 TOP (14:03)
[2019-04-19] MEDS ORDERED: TRAMADOL 50 MG50 MG PO (14:03)
[2019-04-19 14:21] VITALS: BP 155/45
--- NOTE | 2019-04-19 15:50 | NUR ---
CARE TEAM INDICATED THAT PT IS MEDICALLY STABLE TO DC HOME THIS DAY WITH NO NEEDS. PT HAD PREVIOUSLY REFUSED HH SERVICES. CM MET WITH PT AT BEDSIDE THIS AFTERNOON AND PT AGAIN INDICATED THAT SHE DIDN'T WANT HH UPON DC. CM INFORMED PT THAT CARE TEAM ANTICPATED DC HOME THIS DAY. PT IS RECIEVING MAG INFUSION AT THIS TIME AND IT IS ANTICPATED THAT PT WILL BE ABLE TO DC ONCE SHE GETS PO DOSE OF MAG. CM COMPLETED [facility] FORM AND FAXED IT IN. IF AFTER HOURS NURSE WILL NEED TO CALL TO [facility]RANGE TRANSPORT HOME FOR PT. POLO ASKED PT ABOUT CONTACTING HER DTR AND SHE INDICATED THAT SHE AND PT SHARE THE PHONE BUT CM INDICATED THAT CM HADN'T BEEN ABLE TO REACH DTR. SHE INDICATED SHE WOULD HAVE DTR CALL CM. PT HAS ALL NEEDED DME. NO OTHER CM INTERVENTION INDICATED CASE CLOSED.
[2019-04-19 17:27] VITALS: BP 155/45
--- NOTE | 2019-04-19 17:43 | NUR ---
PT PROGRESSED TOWARDS GOALS. DC TO HOME. PER CM PT DECLINED HOME HEALTH. DAUGHTER WAS NOTIFIED OF DC. IV REMOVED. [employer] SENT WITH PATIENT INCLUDING TRILOGY MACHINE. DR JORGE CALLED IN SCRIPTS TO PT'S PHARMACY OF CHOICE. PATIENT LEFT VIA AMBULANCE/CART TO HOME. DC PAPERS SIGNED. EDUCATION GIVEN.
== END 2019-04-19 18:27 | disposition home or self-care (01) | DRG 193 ==
LOC: ER 17:11 → 4W 20:30 → EROBS 20:30 → 4W 23:03
PROVIDERS: Emergency Medicine; Family Medicine; Internal Medicine; Nurse Practitioner Family; ADMIT Internal Medicine
PROC: 5A09357 Assistance with Respiratory Ventilation, Less than 24 Consecutive Hours, Continuous Positive Airway Pressure (ICD-10-PCS; principal; 2019-04-14)
PROC: 5A09357 Assistance with Respiratory Ventilation, Less than 24 Consecutive Hours, Continuous Positive Airway Pressure (ICD-10-PCS; 2019-04-15)
PROC: 5A09357 Assistance with Respiratory Ventilation, Less than 24 Consecutive Hours, Continuous Positive Airway Pressure (ICD-10-PCS; 2019-04-17)
PROC: 5A09357 Assistance with Respiratory Ventilation, Less than 24 Consecutive Hours, Continuous Positive Airway Pressure (ICD-10-PCS; 2019-04-18)
DX: J15.9 Unspecified bacterial pneumonia (principal); J96.21 Acute and chronic respiratory failure with hypoxia; J44.0 Chronic obstructive pulmonary disease with (acute) lower respiratory infection; I50.32 Chronic diastolic (congestive) heart failure; N39.0 Urinary tract infection, site not specified; J44.1 Chronic obstructive pulmonary disease with (acute) exacerbation; Z68.44 Body mass index [BMI] 60.0-69.9, adult; E11.649 Type 2 diabetes mellitus with hypoglycemia without coma; J45.909 Unspecified asthma, uncomplicated; I27.20 Pulmonary hypertension, unspecified; G47.33 Obstructive sleep apnea (adult) (pediatric); E66.01 Morbid (severe) obesity due to excess calories; E03.9 Hypothyroidism, unspecified; I11.0 Hypertensive heart disease with heart failure; D64.9 Anemia, unspecified; E11.42 Type 2 diabetes mellitus with diabetic polyneuropathy; I48.0 Paroxysmal atrial fibrillation; Z90.49 Acquired absence of other specified parts of digestive tract; Z90.711 Acquired absence of uterus with remaining cervical stump; Z88.6 Allergy status to analgesic agent; Z88.2 Allergy status to sulfonamides; Z87.891 Personal history of nicotine dependence; Z82.49 Family history of ischemic heart disease and other diseases of the circulatory system; Z83.3 Family history of diabetes mellitus; Z83.6 Family history of other diseases of the respiratory system; Z79.01 Long term (current) use of anticoagulants; Z79.4 Long term (current) use of insulin; Z99.81 Dependence on supplemental oxygen
CPT/HCPCS: 10040; 10045

== ENCOUNTER 2019-05-02 20:48 | Inpatient (IN) | payer OTHER ==
[~2019-05-02] VITALS: Ht 162.6 cm; Wt 193.2 kg
[~2019-05-02 20:48] MED LIST changes: +CEFDINIR300 MG PO; +NYSTATIN15 G1 TOP
[2019-05-02 20:50] VITALS: BP 202/108
[2019-05-02] MEDS ORDERED: MELATONIN10 M3 PO (21:01)
[2019-05-02] MEDS ORDERED: VITAMIN D325 MC1 PO (21:12)
[2019-05-02] MEDS ORDERED: LOPERAMIDE 2 MG2 M1 PO (21:13)
[2019-05-02] MEDS ORDERED: FLONASE 0.05%50 MCG NARES (21:14)
[2019-05-02] MEDS ORDERED: SENNA8.8 MG/5 M PO (21:14)
[2019-05-02] MEDS ORDERED: FUROSEMIDE 40 M40 MG PO (21:17)
[2019-05-02 21:24] LABS: BE(vivo) 8.1 mmol/L (-2 to +3); HCO3 35.7 mmol/L (22.0-26.0); pH 7.353 (7.360-7.450); sO2 97.2 % (92.0-98.0)
[2019-05-02 21:25] LABS: PCO2 65.7 mmHg (35.0-45.0)
[2019-05-02 23:01] LABS: ANION GAP 5 mmol/L (7-16); BUN 12 mg/dL (7-18); CALCIUM 8.9 mg/dL (8.5-10.1); CHLORIDE 99 mmol/L (98-107); CO2 35 mmol/L (21-32); CREATININE 0.7 mg/dL (0.6-1.0); GLUCOSE 83 mg/dL (74-106); POTASSIUM 3.8 mmol/L (3.5-5.1); SODIUM 139 mmol/L (136-145)
[2019-05-02 23:10] LABS: TROPONIN-I <0.06 ng/mL (<0.06)
[2019-05-02 23:39] VITALS: BP 157/62
[2019-05-03] MEDS ORDERED: SYNTHROID100 MC1 PO (00:05)
[2019-05-03] MEDS ORDERED: HUMALOG100 UNIT/1 SUBQ (00:21)
[2019-05-03 00:27] LABS: ABSOLUTE NEUTROPHILS 6.1 thou/uL (1.4-8.2); BASOPHILS 0.8 % (0.0-2.0); EOSINOPHILS 3.7 % (0.0-3.0); HEMOGLOBIN 11.2 gm/dL (12.0-15.0); LYMPHOCYTES 27.6 % (24.0-44.0); MCH 28.1 pg (26.0-34.0); MCHC 31.1 g/dL (28.0-37.0); MCV 90.3 fL (80.0-100.0); MONOCYTES 8.6 % (1.0-8.0); PLATELET COUNT 344 thou/uL (150-400); POLYS 59.3 % (36.0-66.0); RBC 3.99 mil/uL (4.20-5.00); RDW 14.7 % (10.5-14.5); WBC 10.3 thou/uL (4.0-11.0)
[2019-05-03 00:45] VITALS: BP 154/81
--- NOTE | 2019-05-03 04:23 | NUR ---
PT IS AN ER ADMIT. PT WAS RECENTLY DISCHARGED LAST WEEK. PT IS ADMITTED WITH COPD EXACERBATION.PT IS STABLE UPON ARRIVAL TO THE FLOOR. PT IS ALERT AND ORIENTED. NO FAMILY AT BEDSIDE. ADMISSION ASSESSMENT COMPLETED AND DOCUMENTED. NO SIGN OF DISTRESS NOTED IN PT. PT IS STABLE. PT IS NSR ON THE MONITOR. DENIES ANY PAIN. DENIES ANY FURTHER NEEDS AT THIS TIME.
[2019-05-03 05:54] VITALS: BP 151/68
[2019-05-03 06:36] LABS: INR 1.6; PROTIME 16.7 Seconds (9.3-11.4)
[2019-05-03 07:23] VITALS: BP 158/68
[2019-05-03 11:45] VITALS: BP 173/71
[2019-05-03 15:58] VITALS: BP 168/65
--- NOTE | 2019-05-03 19:54 | NUR ---
PATIENT CONTINUES TO WAIT FOR BARRIACTRIC BED, KHAN MAT PLACED UNDER PATIENT. PATIENT UNHAPPY WITH HEART HEALTHY DIET, ATTEMPTED TO EDUCATE THAT HER SYMPTOMS AND TEST WERE CONSISTANT WITH HEART FAILURE AND THAT THIS DIET WOULD HELP REDUCE THE SODIUM IN HER DIET THEREFORE REDUCING HER SYMPTOMS. MONITOR NSR. PATIENT UPDATED TO THE POC AND REASSURANCE GIVEN. PAIN ISSUE ADDRESSED WITH SOME RELIEF. O2 SAT SHOWING 98% OR GREATER TODAY.
[2019-05-03 20:34] VITALS: BP 148/54
[2019-05-03] MEDS ORDERED: LATANOPROST 0.2.5 ML OPHTHALMIC (21:14)
[2019-05-04] VITALS (7 sets, daily range): BP systolic 99–173; BP diastolic 53–74
--- NOTE | 2019-05-04 06:52 | NUR ---
ASSUMED PT CARE AT 1900. VSS. PT A&0X4, PT BED CHANGED TO BARRIATRIC BED WITH MAX INFLATE, PT TURNED PRN PER REQUEST, NAYELI CARE AND SKIN CARE DONE EACH TIME. INTERDRY AND NYSTATIN PLACED IN BETWEEN PT'S FOLDS, EXTERNAL CATH CHANGED 3X THIS SHIFT. PT USED OWN HOME CPAP AT [facility]. PT IS NONABULATORY CAN MOVE HER RIGHT ARM MORE THAN LEFT BUT BARELY MOVE HER LEGS. PT COMPLAINED OF PAIN IN HER LEGS, HYDROCODONE GIVEN FOR THIS. PT IS STABLE OTHERWISE. NO FURTHER COMPLAINTS. WILL CONTINUE TO MONITOR.
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
[2019-05-04 11:09] LABS: ABSOLUTE NEUTROPHILS 11.4 thou/uL (1.4-8.2); BASOPHILS 0.1 % (0.0-2.0); HEMATOCRIT 36.1 % (37.0-47.0); HEMOGLOBIN 11.1 gm/dL (12.0-15.0); LYMPHOCYTES 11.4 % (24.0-44.0); MCH 27.7 pg (26.0-34.0); MCHC 30.7 g/dL (28.0-37.0); MCV 90.3 fL (80.0-100.0); MONOCYTES 5.2 % (1.0-8.0); PLATELET COUNT 366 thou/uL (150-400); POLYS 83.3 % (36.0-66.0); RDW 14.7 % (10.5-14.5); WBC 13.6 thou/uL (4.0-11.0)
[2019-05-04 11:19] LABS: INR 1.6; PROTIME 16.4 Seconds (9.3-11.4)
[2019-05-04 11:23] LABS: CALCIUM 9.6 mg/dL (8.5-10.1); CREATININE 0.9 mg/dL (0.6-1.0); MAGNESIUM 1.8 mg/dL (1.8-2.4); POTASSIUM 4.8 mmol/L (3.5-5.1); TOTAL BILIRUBIN 0.2 mg/dL (<0.1-1.0); TOTAL PROTEIN 8.5 g/dL (6.4-8.2)
--- NOTE | 2019-05-04 12:29 | NUR ---
PT IS ALERT AND ORIENTED X4. LUNGS ARE WHEEZY TO DIMINISHED. GETTING BREATHING TREATMENTS. PT IS ON A CARB CONTROL DIET. UNHAPPY WITH DIET HERE. AND MEALS. WANTS ITEMS THAT ARE ON THE CHOICE OF DIET SHE IS ON. HAS A FEMALE CATHETER BUT LEAKS. ON A LOW AIR LOSS MATRESS TO ACCOMIDATE BY WEIGHT. ANTIBIOTICS GIVEN ORDERED. VITALS ARE STABLE. WILL GET THE AIDS ONCE SHE IS DONE WITH LUNCH TO ASSSIT WITH A NEW FEMALE CATHETER PLACEMENT. PER NURSING
--- NOTE | 2019-05-04 19:01 | EKG ---
[place] [address] [address] [facility] [place] [address] ELECTROCARDIOGRAM REPORT Name: MIXARIELA Room #: 201-P ADM IN M.R.#: [id number] Admission: 05/02/19 Attend Phys: Jaleel Magallon MD Discharge: Date of : 49 Report #: [id number] THIS REPORT FOR: //name// [facility] ED Test Date: 2019-05-02 Test Time: 21:25:39 Pat Name: ARIELA MIX Department: Room: 201 Gender: F City Carrier: SHERRILL : 1945 Requested By: Jose Huerta Order Number: [id number] MD: Bong Murry Measurements Intervals [place] Rate: 75 P: 66 ID: [id number] QRS: 3 QRSD: 114 T: 70 QT: 392 QTc: 438 Interpretive Statements Sinus rhythm Anteroseptal infarct, old Compared to ECG 04/13/2019 18:36:31 No significant change was found Electronically Signed On 05-04-2019 19:00:51 TELEGRAPH LINEMAN by Bong Murry [email or web address] <ELECTRONICALLY SIGNED> By: Bong Murry MD, [facility] 11/06/10 1900 24 24 Bong Murry MD, [facility] /EPI
--- NOTE | 2019-05-05 01:22 | NUR ---
ASSUMED PT CARE AT 1900. PT VSS WITH C/O PAIN TO NECK AND UPPER BACK. PAIN MEDICATION PROVIDED WITH PARTIAL RELIEF. PT IS APPROPRIATE. CONTACTED PHYSICIAN TO HAVE PT ADMIN STATUS CHANGED AND REQUEST TO MOVE TO A M/S BED APPROVED. PT WAS TRANSFERED TO AND ASSESSMENT CHARTED AND REPORT GIVEN TO NURSE TAKING OVER.
--- NOTE | 2019-05-05 03:01 | NUR ---
PT TRANSFERRED FROM . AXOX3. TRANSFERRED ON BARIATRIC BED. VSS. IV INFILTRATED ON ROUTE. IV REMOVED PER PT REQIEST. PT DECLINED TO HAVE IV REINSERTED TONIGHT THAT PT WILL ALLOW IV TEAM TO TRY IN AM. WILL ENDORSE TO DAY RN. PT ON O2 3L NS. CONNECTED TO TRILOGY BY RT. NO S/S ACUTE DISTRESS NOTED OR REPORTED AT THIS TIME. WILL CONT TO MONITOR FOR ANY CHANGES IN CONDITION.
[2019-05-05 04:59] LABS: ABSOLUTE NEUTROPHILS 9.1 thou/uL (1.4-8.2); BASOPHILS 0.5 % (0.0-2.0); EOSINOPHILS 0.2 % (0.0-3.0); HEMATOCRIT 32.8 % (37.0-47.0); HEMOGLOBIN 10.2 gm/dL (12.0-15.0); LYMPHOCYTES 22.2 % (24.0-44.0); MCH 27.8 pg (26.0-34.0); MCV 89.8 fL (80.0-100.0); MONOCYTES 10.1 % (1.0-8.0); PLATELET COUNT 333 thou/uL (150-400); RBC 3.65 mil/uL (4.20-5.00); RDW 14.7 % (10.5-14.5); WBC 13.5 thou/uL (4.0-11.0)
[2019-05-05 05:00] LABS: CALCIUM 9.2 mg/dL (8.5-10.1); MAGNESIUM 1.6 mg/dL (1.8-2.4); PHOSPHORUS 2.8 mg/dL (2.5-4.9); POTASSIUM 4.6 mmol/L (3.5-5.1)
[2019-05-05 07:35] VITALS: BP 155/68
--- NOTE | 2019-05-05 11:13 | NUR ---
Assess due to high BMI 73.1=extreme class III obesity. Readmitted with SOB, CHF exacerbation. Hx DM. Pt bedbound at home, lives with family. Wt is up 20 lb from last weeks admission-requires lasix. BG poor controlled and likely aggravated worse with prednisone. [employer] has identifed sarcopenia as pt without mobility, and also has reduced bilateral wet end helper strenth. Pt had been unhappy with heart healthy restriction and just wanted carb controlled diet. Encouraged to keep Na intake to minimum due to fluid retention/SOB. Pt very unhappy with food choices available and asking for several foods that hospital does not supply. Required some reinforcement on use of vitamin K food consistency with warfarin. Also discussed high protein intake. Pt overall, just not happy with hospital food. Offered suggestions as best as possible to accomodate choices. Low nutrition risk
[2019-05-05 15:30] VITALS: BP 168/60
--- NOTE | 2019-05-05 15:54 | NUR ---
PULM CONSULTED TO SEE PT. CM TO FOLLOW INDICATED WITH DC PLANNING.
--- NOTE | 2019-05-05 19:17 | NUR ---
PT A&OX4, VSS, PAIN IN FEET AND SHOULDERS. PATIENT HAD DIARRHEA TWICE. PATIENT ON CDIFF PRECAUTIONS AWAITING STOOL RESULTS. NO SIGNS OF DISTRESS. LUNGS COURSE WITH NON PRODUCTIVE COUGH. PATIENT ABLE TO ASSIST WITH TURNING TO SIDE FOR NAYELI CARE. NYSTATIN CREAM APPLIED TO SKIN FOLDS. WILL CONTINUE TO MONITOR.
[2019-05-05 20:00] VITALS: BP 134/49
--- NOTE | 2019-05-06 04:31 | NUR ---
Assessment completed. pt a&ox4. able to help with repositioning. purewick in place but leaks out sometimes. pt was able to sleep well with little interruptions throughout the night. pain and sleep meds were given with reults noted. cpap in place. v/s wnl. contact prec for possible c.diff, awaiting stool sample collection. no bm this shift. no s/s of distress. will cont to monitor
[2019-05-06 07:05] LABS: ABSOLUTE NEUTROPHILS 8.9 thou/uL (1.4-8.2); BASOPHILS 0.4 % (0.0-2.0); HEMATOCRIT 33.9 % (37.0-47.0); HEMOGLOBIN 10.5 gm/dL (12.0-15.0); LYMPHOCYTES 20.4 % (24.0-44.0); MCH 27.8 pg (26.0-34.0); MCHC 31.1 g/dL (28.0-37.0); MCV 89.4 fL (80.0-100.0); MONOCYTES 7.3 % (1.0-8.0); PLATELET COUNT 345 thou/uL (150-400); POLYS 71.9 % (36.0-66.0); RBC 3.79 mil/uL (4.20-5.00); RDW 14.5 % (10.5-14.5); WBC 12.4 thou/uL (4.0-11.0)
[2019-05-06 07:11] LABS: PROTIME 20.3 Seconds (9.3-11.4)
[2019-05-06 07:15] LABS: ALBUMIN 2.9 g/dL (3.4-5.0); ANION GAP < 0 mmol/L (7-16); BUN 30 mg/dL (7-18); CALCIUM 9.4 mg/dL (8.5-10.1); CHLORIDE 94 mmol/L (98-107); CO2 43 mmol/L (21-32); GLUCOSE 316 mg/dL (74-106); MAGNESIUM 1.6 mg/dL (1.8-2.4); PHOSPHORUS 3.2 mg/dL (2.5-4.9); POTASSIUM 4.4 mmol/L (3.5-5.1); SGOT 8 U/L (15-37); SGPT 16 U/L (30-65); SODIUM 135 mmol/L (136-145); TOTAL BILIRUBIN 0.2 mg/dL (<0.1-1.0); TOTAL PROTEIN 7.5 g/dL (6.4-8.2)
[2019-05-06 08:34] VITALS: BP 165/93
[2019-05-06] MEDS ORDERED: RAYOS5 MG PO (15:19)
[2019-05-06 16:21] VITALS: BP 165/93
--- NOTE | 2019-05-06 16:43 | NUR ---
CM SPOKE WITH PT AND INDICATED THAT PT IS MEDICALLY STABLE TO DC HOME THIS DAY. PT INDICATED SHE DIDN'T FEEL CONFORTABLE TO DC HOME SHE WAS STILL GETTING IVS AND ON NEW MEDS. CM NOTIFIED PT THAT REFERRALS HAD BEEN SENT FOR HOSP BED AND WC TO [facility]. PT CAN'T GET NEW BED UNTIL DECEMBER 2019. PT IS AWARE. PT INDICATED SHE WAS APPEALING HER DISHCARGE. NURSE PROVIDED DC ORDERS PT SIGNED AND WAS INSTRUCTED TO CALL TO INITIATE APPEAL.
[2019-05-06 17:02] VITALS: BP 153/73
--- NOTE | 2019-05-06 17:03 | NUR ---
rec call from Medicare appeals QIO patient appealing her stay. AP
--- NOTE | 2019-05-06 18:12 | NUR ---
Assumed patient care at 0715. Patient continues to have coarse lung sounds with a non-productive cough. Patient does have a diagnosis of COPD Exacerbation. Patient has had no BM's today. Dr Richardson came in to see patient, informed patient and daughter that she is going to be discharged today. Patient was very unhappy about this, is appealing discharge. Patient called Medicare (a copy of this paperwork is in her paper chart). Patient refused to even look at her Discharge Paperwork. Vital signs are stable. POC followed. Dr Richardson and Nursing Bricklayer [employer]er informed of Appeal. Will report to on-comimg nurse.
[2019-05-06 19:48] VITALS: BP 171/56
[2019-05-06 19:52] VITALS: BP 171/56
--- NOTE | 2019-05-07 01:38 | NUR ---
Assumed care of pt @1915. pt is a&ox4. v/s stable. no significant changes overnight. pt denies pain. melatonin was given for sleep. stool collected and sent to lab, awaiting results. contact prec for possible cdiff. cpap on for the night. no s/s of ditress. will cont to monitor
[2019-05-07 06:03] LABS: HEMATOCRIT 34.4 % (37.0-47.0); HEMOGLOBIN 10.6 gm/dL (12.0-15.0); MCH 27.7 pg (26.0-34.0); MCHC 30.9 g/dL (28.0-37.0); MCV 89.7 fL (80.0-100.0); PLATELET COUNT 337 thou/uL (150-400); RBC 3.84 mil/uL (4.20-5.00); RDW 14.6 % (10.5-14.5); WBC 16.2 thou/uL (4.0-11.0)
[2019-05-07 06:16] LABS: CALCIUM 8.9 mg/dL (8.5-10.1); CREATININE 0.8 mg/dL (0.6-1.0); INR 1.9; POTASSIUM 4.8 mmol/L (3.5-5.1); PROTIME 19.5 Seconds (9.3-11.4)
[2019-05-07 07:06] LABS: ATYPICAL LYMPHS 4 %
[2019-05-07 07:07] LABS: ANISOCYTOSIS SLIGHT; PLATELET ESTIMATE NORMAL
[2019-05-07 08:00] VITALS: BP 178/62
--- NOTE | 2019-05-07 10:02 | NUR ---
cm notified that pt appealing her dc. mike found [employer] fax requesting chart copy be faxed by noon today to [phone], # [phone], ID # [id number]. cm took request for chart copy to medical rec and will be faxed.
--- NOTE | 2019-05-07 14:47 | NUR ---
Assumed patient care at 0715. Patient has been complaining about the "horrible staff here" all day. Dr Richardson offered to allow patient to have a different doctor. Patient stated "no, that's alright." Patient also appealed her discharge yesterday, therefore she will be able to stay until the upcoming Friday. Patient was accusing staff of "taking her home medications"; these are safe with Pharmacy. Patient has been advised of this. Staff has been "walking on eggshells" upon entering her room due to the complaining. Patient's vital signs have been stable throughout this shift. Patient has had 2 formed bowel movements today. She continues to consume 100% of all meals and ask for snacks in between them. She continues to wear an external catheter due to urinary incontinence. Will continue to monitor.
[2019-05-07 15:32] VITALS: BP 146/45
--- NOTE | 2019-05-07 15:49 | NUR ---
PT APPEALED HER DC YESTERDAY AND CONTACTED hereO TO INITUATE APPEAL. REQUESTE FOR CLINICAL WAS RECEIVED AND TAKEN TO MEDICAL RECORDS TO COMPLETE. CM COMPLETED [facility] FORM SHOULD APPEAL DETERMINATION BE REACHED AN [facility] APPEAL AND NEED TO DC HOME. NURSE WILL NEED TO FAX FORM TO [facility] NUMBER AT TOP OF CHART AND WAIT 15 MINS THEN CALL TO SCHEDULE IT. PT REFUSED HOME HEALTH. PT DOESN'T QUALIFY FOR HOSPITAL BED. CLINICAL INFO HAS BEEN SENT TO [facility] FOR A NEW WHEELCHAIR AND WILL NEED TO BE FOLLOWED UP ON UPON DC.
[2019-05-08 00:07] VITALS: BP 146/49
--- NOTE | 2019-05-08 03:49 | NUR ---
PT IS A/O X4.PT IS BEDBOUND AND INCONTINENT TO B/B .PT USE BEDPAN AND HAS AND EXTERNAL FEMALE CATHETER.PT HAS TWO LOOSE STOOL .PT REFUSED TO TAKE STOOL SOFTEN PRIOR TO BM.PT IS MAX 2 TO 3 PERSONS ASSIST AND TIME CONSUMING.PT COMPLAINED OF PAIN AND WAS GIVEN HYDROCODONE .PT IS ON ISOLATION PRECAUSTION FOR CDIFF.PT IS ACCUCHECK ACHS .PT IS ON 3L OF O2 NC AND BIPAP AT NIGHT.CONTINUE TO MONITOR TILL EOS
[2019-05-08 07:43] VITALS: BP 176/92
[2019-05-08 14:56] LABS: INR 2.3; PROTIME 24.1 Seconds (9.3-11.4)
[2019-05-08 15:07] VITALS: BP 150/45
--- NOTE | 2019-05-08 16:30 | NUR ---
PATIENT ALERT AND ORIENTED X4, NO COMPLAINTS OF PAIN. ON 3L NASAL CANNULA. PATIENT HAS RASH UNDER PANUS AREA WHERE HYDROCORTISONE CREAM PLACED. PATIENT VERBALIZED IMPROVEMENT. PLAN OF CARE DISCUSSED WITH PATIENT AND DR. HIDALGO, THE PLAN IS TO BE DISCHARGED HOME TOMORROW WITH AMBULANCE TRANSPORT. THIS NEEDS TO BE SET UP TOMORROW BY NURSING STAFF. PATIENT VERBALIZED UNDERSTANDING. NO SIGNS OF ACUTE DISTRESS NOTED AT THIS TIME. WILL CONTINUE TO MONITOR.
[2019-05-08 19:10] VITALS: BP 146/98
--- NOTE | 2019-05-09 05:40 | NUR ---
pt care assume at 1900.pt is maximum assist.pt is on o2 nc at 3l and bipap at night.pt pain mgt with hydrocodone with partial relief.pt had 1 loose stool yesterday. pt is accucheck achs.continue to monitor
[2019-05-09 06:02] LABS: INR 2.2; PROTIME 22.6 Seconds (9.3-11.4)
[2019-05-09 10:25] VITALS: BP 165/93
--- NOTE | 2019-05-09 12:11 | NUR ---
PT A&OX4, VSS, DENIES PAIN. LUNGS CLEAR, BREATHING REGULAR. PATIENT DISCHARGED HOME, NO SIGNS OF DISTRESS. PATIENT CALLED HOME AND GRANDSON VERIFIED SOMEONE WILL BE AT HOME TO OPEN DOOR. EXTERNAL CATHETER REMOVED, IV REMOVED, HOME MEDICATION SIGNED OUT FROM PHARMACY BY THIS NURSE. ALL BELONGINGS WITH PATIENT.
== END 2019-05-09 11:30 | disposition home or self-care (01) | DRG 189 ==
LOC: ER 20:48 → EROBS 23:19 → 2N 23:19 → 4W 05-04 23:30
PROVIDERS: Emergency Medicine; Internal Medicine; ADMIT Hospitalist
PROC: 5A09357 Assistance with Respiratory Ventilation, Less than 24 Consecutive Hours, Continuous Positive Airway Pressure (ICD-10-PCS; principal; 2019-05-03)
PROC: 5A09357 Assistance with Respiratory Ventilation, Less than 24 Consecutive Hours, Continuous Positive Airway Pressure (ICD-10-PCS; 2019-05-04)
PROC: 5A09357 Assistance with Respiratory Ventilation, Less than 24 Consecutive Hours, Continuous Positive Airway Pressure (ICD-10-PCS; 2019-05-05)
PROC: 5A09357 Assistance with Respiratory Ventilation, Less than 24 Consecutive Hours, Continuous Positive Airway Pressure (ICD-10-PCS; 2019-05-08)
DX: J96.22 Acute and chronic respiratory failure with hypercapnia (principal); J44.1 Chronic obstructive pulmonary disease with (acute) exacerbation; E66.2 Morbid (severe) obesity with alveolar hypoventilation; I48.92 Unspecified atrial flutter; I50.32 Chronic diastolic (congestive) heart failure; Z68.45 Body mass index [BMI] 70 or greater, adult; I48.0 Paroxysmal atrial fibrillation; I27.20 Pulmonary hypertension, unspecified; K21.9 Gastro-esophageal reflux disease without esophagitis; D64.9 Anemia, unspecified; J96.21 Acute and chronic respiratory failure with hypoxia; I25.10 Atherosclerotic heart disease of native coronary artery without angina pectoris; E03.9 Hypothyroidism, unspecified; I11.0 Hypertensive heart disease with heart failure; Z90.49 Acquired absence of other specified parts of digestive tract; Z86.711 Personal history of pulmonary embolism; Z79.01 Long term (current) use of anticoagulants; Z88.5 Allergy status to narcotic agent; Z79.4 Long term (current) use of insulin; Z88.2 Allergy status to sulfonamides; Z83.3 Family history of diabetes mellitus; Z82.3 Family history of stroke; Z82.49 Family history of ischemic heart disease and other diseases of the circulatory system; Z83.6 Family history of other diseases of the respiratory system; Z90.711 Acquired absence of uterus with remaining cervical stump; Z79.84 Long term (current) use of oral hypoglycemic drugs; Z74.01 Bed confinement status; L30.4 Erythema intertrigo; E11.65 Type 2 diabetes mellitus with hyperglycemia
CPT/HCPCS: 10047; 10081